=== PATIENT | female | born 1965 | race African-American/Black ===

== ENCOUNTER 2019-02-25 15:26 | Emergency (ER) | payer OTHER ==
[~2019-02-25] VITALS: Ht 157.5 cm; Wt 76.2 kg
[2019-02-25] MEDS ORDERED: KEFLEX500 M1 PO (15:43)
[2019-02-25 16:03] VITALS: BP 134/98
== END 2019-02-25 16:05 | disposition home or self-care (01) ==
LOC: M.ERS 15:26
DX: L03.011 Cellulitis of right finger (principal); F17.210 Nicotine dependence, cigarettes, uncomplicated

== ENCOUNTER 2019-04-18 16:11 | Emergency (ER) | payer OTHER ==
[~2019-04-18] VITALS: Ht 157.5 cm; Wt 86.2 kg
[~2019-04-18 16:11] MED LIST: KEFLEX500 M1 PO
[2019-04-18 20:48] VITALS: BP 138/94
== END 2019-04-18 20:48 | disposition home or self-care (01) ==
LOC: M.ERS 16:11
DX: R40.0 Somnolence (principal); F17.210 Nicotine dependence, cigarettes, uncomplicated